=== PATIENT | male | born 1985 | race Two or more races ===

== ENCOUNTER 2021-08-11 06:24 | Emergency (ER) | payer OTHER ==
[~2021-08-11] VITALS: Ht 182.9 cm; Wt 68.0 kg
[2021-08-11] MEDS ORDERED: KETOROLAC TROMETH 60MG/2ML VIAL IM ONE (08:15)
[2021-08-11 15:30] VITALS: BP 127/87
== END 2021-08-11 16:45 | disposition home or self-care (01) ==
LOC: ER 06:24 → EDBD 06:24 → ER 16:45
DX: S46.912A Strain of unspecified muscle, fascia and tendon at shoulder and upper arm level, left arm, initial encounter (principal); V43.52XA Car driver injured in collision with other type car in traffic accident, initial encounter; Y93.89 Activity, other specified; Y92.410 Unspecified street and highway as the place of occurrence of the external cause; Y99.8 Other external cause status
CPT/HCPCS: 70450; 71250; 72125; 73030; 93005; 96372; 99285; J1885